=== PATIENT | female | born 1940 | race African-American/Black ===

== ENCOUNTER 2017-12-16 21:56 | Inpatient (IN) | payer MEDICARE, MEDICAID ==
[~2017-12-16] VITALS: Ht 152.4 cm; Wt 65.3 kg
[~2017-12-16 21:56] MED LIST: LIPITOR PO; RANO10003 PO
[2017-12-16] MEDS ORDERED: SODIUM CHLORIDE 0.9% 1000ML BAG (SEPSIS BOLUS) IV ONE (22:30)
[2017-12-16] MEDS ORDERED: ACETAMINOPHEN 650MG SUPP PR ONE (23:00)
[2017-12-16 23:24] LABS: BASOPHILS % 0.6 % (0.0-2.0); HEMATOCRIT. 43.6 % (36.0-48.0); HEMOGLOBIN. 14.7 g/dL (12.0-16.0); MEAN CORPUSCULAR HEMOGLOBIN 30.8 pg (28.0-32.0); MEAN CORPUSCULAR VOLUME 91.8 fL (81.0-99.0); MEAN PLATELET VOLUME 8.6 fl (7.4-10.4); MONOCYTES % 10.1 % (2.0-8.0); NEUTROPHILS % 74.3 % (40.0-76.0); PLATELET 223 x1000/uL (130-400); RED BLOOD CELL COUNT 4.75 mill/uL (4.2-5.4); RED CELL DISTRIBUTION WIDTH 15.7 % (11.6-14.6)
[2017-12-16] MEDS ORDERED: MEROPENEM 1,000 MG in SODIUM CHLORIDE 0.9% 100 ML IV ONE (23:30)
[2017-12-16] MEDS ORDERED: VANCOMYCIN 1 G PREMIX 200 ML IV ONE (23:30)
[2017-12-16] MEDS ORDERED: PIPERACILLIN/TAZ 3.375G PREMIX 50 ML IV ONE (23:30)
[2017-12-16 23:31] LABS: INR 1.3
[2017-12-16 23:36] LABS: CHLORIDE 104 mEq/L (98-107); ETHANOL BLOOD < 10 mg/dL
[2017-12-17 00:06] LABS: CLARITY URINE CLEAR (CLEAR); COLOR URINE YELLOW (YELLOW); KETONES URINE NEGATIVE (NEGATIVE); LEUKOCYTE ESTERASE URINE 1+ (NEGATIVE); NITRITE URINE NEGATIVE (NEGATIVE); OCCULT BLOOD URINE NEGATIVE (NEGATIVE); PH URINE 5.5 (4.5-8.0); PROTEIN URINE NEGATIVE (NEGATIVE); SPECIFIC GRAVITY URINE 1.018 (1.005-1.030); UROBILINOGEN URINE 0.2 E.U./dL (0.2-1.0)
[2017-12-17 00:53] LABS: *AMPHETAMINES SCREEN URINE NEGATIVE (NEGATIVE); *BARBITURATES SCREEN URINE NEGATIVE (NEGATIVE); *BENZODIAZEPINES SCREEN URINE PRESUMTIVE POSITIVE (NEGATIVE); *COCAINE SCREEN URINE NEGATIVE (NEGATIVE); CANNABINOID URINE SCREEN NEGATIVE (NEGATIVE); METHADONE URINE SCREEN NEGATIVE (NEGATIVE); OPIATES URINE SCREEN NEGATIVE (NEGATIVE); PHENCYCLIDINE URINE SCREEN NEGATIVE (NEGATIVE)
[2017-12-17] MEDS ORDERED: ONDANSETRON HCL 4MG/2ML VIAL IV PRN (01:00)
[2017-12-17] MEDS ORDERED: IPRATROPIUM/ALBUTEROL 0.5-3(2.5)MG/3ML NEB INH PRN (01:00)
[2017-12-17] MEDS ORDERED: IOHEXOL-300 100 ML BOTTLE ONE (01:07)
[2017-12-17] MEDS ORDERED: PIPERACILLIN/TAZ 3.375G PREMIX 50 ML IV SCH (06:00)
[2017-12-17 06:08] LABS: BASOPHILS % 0.6 % (0.0-2.0); CHLORIDE 108 mEq/L (98-107); EOSINOPHILS % 0.1 % (0.0-5.0); HEMATOCRIT. 39.8 % (36.0-48.0); HEMOGLOBIN. 13.2 g/dL (12.0-16.0); LYMPHOCYTES % 15.4 % (20.0-50.0); MEAN CORPUSCULAR HEMOGLOBIN 30.8 pg (28.0-32.0); MEAN CORPUSCULAR VOLUME 92.6 fL (81.0-99.0); MEAN PLATELET VOLUME 8.4 fl (7.4-10.4); MONOCYTES % 13.6 % (2.0-8.0); NEUTROPHILS % 70.3 % (40.0-76.0); PLATELET 194 x1000/uL (130-400); RED CELL DISTRIBUTION WIDTH 15.9 % (11.6-14.6)
[2017-12-17 10:04] LABS: AMMONIA 18 uMol/L (<32)
[2017-12-17] MEDS ORDERED: NA PHOS,M-B/NA PHOS,DI-BA ENEMA 118ML PR NR (10:45)
[2017-12-17] MEDS: DEXT 5%/0.45% NACL 1000ML 1,000 ML IV SCH (10:58)
[2017-12-17] MEDS: PANTOPRAZOLE SODIUM 40 MG/VIAL IV SCH (10:58)
[2017-12-17 13:35] VITALS: BP 137/102
[2017-12-17 14:00] VITALS: BP 135/89
[2017-12-17] MEDS ORDERED: HYDRALAZINE 20MG/ML VIAL IV PRN (14:15)
[2017-12-17] MEDS ORDERED: MEMA10TA2 PO (14:35)
[2017-12-17] MEDS ORDERED: AMIT10TA6 PO (14:35)
[2017-12-17] MEDS ORDERED: OMEP20CA10 PO (14:35)
[2017-12-17] MEDS ORDERED: ALPR1TAB2 PO (14:35)
[2017-12-17] MEDS ORDERED: RANO500T3 PO (14:35)
[2017-12-17] MEDS: PIPERACILLIN/TAZ 3.375G PREMIX 50 ML IV SCH ×2 (15:49→22:01)
[2017-12-17 16:00] VITALS: BP 124/69
[2017-12-17] MEDS: VANCOMYCIN 750 MG PREMIX 150 ML IV SCH (17:41)
[2017-12-17 18:00] VITALS: BP 128/53
[2017-12-17 19:14] LABS: T4 FREE 1.46 ng/dL (0.76-1.46)
[2017-12-17 20:00] VITALS: BP 119/55
[2017-12-17 22:00] VITALS: BP 122/87
[2017-12-18] VITALS (12 sets, daily range): BP systolic 108–137; BP diastolic 69–87
[2017-12-18] MEDS: DEXT 5%/0.45% NACL 1000ML 1,000 ML IV SCH ×2 (01:46→19:57)
[2017-12-18] MEDS: PIPERACILLIN/TAZ 3.375G PREMIX 50 ML IV SCH ×3 (05:45→22:08)
[2017-12-18 06:31] LABS: CHLORIDE 107 mEq/L (98-107)
[2017-12-18 06:34] LABS: BASOPHILS % 0.5 % (0.0-2.0); EOSINOPHILS % 1.4 % (0.0-5.0); HEMATOCRIT. 35.2 % (36.0-48.0); HEMOGLOBIN. 11.9 g/dL (12.0-16.0); LYMPHOCYTES % 19.6 % (20.0-50.0); MEAN CORPUSCULAR VOLUME 91.7 fL (81.0-99.0); MEAN PLATELET VOLUME 8.5 fl (7.4-10.4); MONOCYTES % 8.8 % (2.0-8.0); NEUTROPHILS % 69.7 % (40.0-76.0); PLATELET 192 x1000/uL (130-400); RED BLOOD CELL COUNT 3.84 mill/uL (4.2-5.4); RED CELL DISTRIBUTION WIDTH 15.9 % (11.6-14.6)
[2017-12-18 06:41] LABS: PHOSPHORUS 2.3 mg/dL (2.5-4.9)
[2017-12-18] MEDS: PANTOPRAZOLE SODIUM 40 MG/VIAL IV SCH (09:45)
[2017-12-18] MEDS ORDERED: LACTULOSE 20G/30ML UDC PO SCH (12:15)
[2017-12-18] MEDS: VANCOMYCIN 750 MG PREMIX 150 ML IV SCH (12:22)
[2017-12-18] MEDS: ACETAMINOPHEN 325MG TABLET PO PRN (20:08)
[2017-12-19] VITALS (12 sets, daily range): BP systolic 106–146; BP diastolic 67–97
[2017-12-19] MEDS: PIPERACILLIN/TAZ 3.375G PREMIX 50 ML IV SCH ×3 (05:28→22:21)
[2017-12-19] MEDS: VANCOMYCIN 750 MG PREMIX 150 ML IV SCH (05:28)
[2017-12-19 07:15] LABS: BASOPHILS % 0.7 % (0.0-2.0); EOSINOPHILS % 1.3 % (0.0-5.0); HEMOGLOBIN. 11.7 g/dL (12.0-16.0); LYMPHOCYTES % 17.1 % (20.0-50.0); MEAN CORPUSCULAR HEMOGLOBIN 30.7 pg (28.0-32.0); MEAN CORPUSCULAR VOLUME 91.7 fL (81.0-99.0); MEAN PLATELET VOLUME 8.6 fl (7.4-10.4); MONOCYTES % 10.8 % (2.0-8.0); NEUTROPHILS % 70.1 % (40.0-76.0); PLATELET 201 x1000/uL (130-400); RED BLOOD CELL COUNT 3.82 mill/uL (4.2-5.4); RED CELL DISTRIBUTION WIDTH 15.1 % (11.6-14.6)
[2017-12-19 07:43] LABS: CHLORIDE 105 mEq/L (98-107)
[2017-12-19] MEDS: PANTOPRAZOLE SODIUM 40 MG/VIAL IV SCH (08:46)
[2017-12-19 09:31] LABS: VITAMIN B12 SERUM 1038 pg/mL (211-911)
[2017-12-19] MEDS: ACETAMINOPHEN 325MG TABLET PO PRN (23:52)
[2017-12-20] VITALS (12 sets, daily range): BP systolic 104–135; BP diastolic 58–99
[2017-12-20] MEDS: VANCOMYCIN 750 MG PREMIX 150 ML IV SCH (00:17)
[2017-12-20] MEDS: PIPERACILLIN/TAZ 3.375G PREMIX 50 ML IV SCH ×3 (05:55→21:10)
[2017-12-20 07:10] LABS: EOSINOPHILS % 2.1 % (0.0-5.0); HEMATOCRIT. 33.7 % (36.0-48.0); HEMOGLOBIN. 11.2 g/dL (12.0-16.0); LYMPHOCYTES % 21.1 % (20.0-50.0); MEAN CORPUSCULAR HEMOGLOBIN 30.4 pg (28.0-32.0); MEAN CORPUSCULAR VOLUME 91.6 fL (81.0-99.0); MEAN PLATELET VOLUME 8.6 fl (7.4-10.4); MONOCYTES % 9.5 % (2.0-8.0); NEUTROPHILS % 66.3 % (40.0-76.0); PLATELET 228 x1000/uL (130-400); RED BLOOD CELL COUNT 3.68 mill/uL (4.2-5.4); RED CELL DISTRIBUTION WIDTH 15.2 % (11.6-14.6)
[2017-12-20 07:46] LABS: CHLORIDE 102 mEq/L (98-107)
[2017-12-20] MEDS: PANTOPRAZOLE SODIUM 40 MG/VIAL IV SCH (08:28)
[2017-12-20] MEDS: DEXT 5%/0.45% NACL 1000ML 1,000 ML IV SCH ×2 (08:29→21:22)
[2017-12-20] MEDS: CARVEDILOL 3.125 MG TABLET PO SCH ×2 (11:26→21:09)
[2017-12-20] MEDS: POTASSIUM CHLORIDE 20MEQ TABLET SR PO SCH (11:26)
[2017-12-20] MEDS: DOCUSATE SODIUM 100MG CAPSULE PO SCH (17:01)
[2017-12-20] MEDS: ACETAMINOPHEN 325MG TABLET PO PRN (17:02)
[2017-12-20] MEDS ORDERED: VANCOMYCIN 1 G PREMIX 200 ML IV SCH (18:00)
[2017-12-20] MEDS ORDERED: ATORVASTATIN CALCIUM 40MG TABLET PO SCH (21:00)
[2017-12-20] MEDS: FUROSEMIDE 20MG TABLET PO SCH (21:09)
[2017-12-20] MEDS: RANOLAZINE 500 MG TAB.SR.12H PO SCH (21:09)
[2017-12-20] MEDS: LISINOPRIL 10MG TABLET PO SCH (21:09)
[2017-12-21] VITALS (15 sets, daily range): BP systolic 93–145; BP diastolic 52–84
[2017-12-21] MEDS: PIPERACILLIN/TAZ 3.375G PREMIX 50 ML IV SCH ×2 (05:29→15:03)
[2017-12-21 06:40] LABS: BASOPHILS % 0.8 % (0.0-2.0); HEMATOCRIT. 31.4 % (36.0-48.0); HEMOGLOBIN. 10.5 g/dL (12.0-16.0); LYMPHOCYTES % 17.4 % (20.0-50.0); MEAN CORPUSCULAR HEMOGLOBIN 30.5 pg (28.0-32.0); MEAN PLATELET VOLUME 8.2 fl (7.4-10.4); MONOCYTES % 8.6 % (2.0-8.0); NEUTROPHILS % 70.2 % (40.0-76.0); PLATELET 243 x1000/uL (130-400); RED BLOOD CELL COUNT 3.45 mill/uL (4.2-5.4); RED CELL DISTRIBUTION WIDTH 15.1 % (11.6-14.6)
[2017-12-21] MEDS: RANOLAZINE 500 MG TAB.SR.12H PO SCH (08:28)
[2017-12-21] MEDS: POTASSIUM CHLORIDE 20MEQ TABLET SR PO SCH (08:28)
[2017-12-21] MEDS: DOCUSATE SODIUM 100MG CAPSULE PO SCH ×2 (08:29→16:54)
[2017-12-21] MEDS: CARVEDILOL 3.125 MG TABLET PO SCH (08:29)
[2017-12-21] MEDS: LISINOPRIL 10MG TABLET PO SCH (08:30)
[2017-12-21] MEDS: FUROSEMIDE 20MG TABLET PO SCH (08:33)
[2017-12-21] MEDS ORDERED: SPIRONOLACTONE 25MG TABLET PO SCH (09:00)
[2017-12-21 09:30] LABS: CHLORIDE 102 mEq/L (98-107)
[2017-12-21 13:07] LABS: A/G RATIO 0.7 (0.7-1.7); ALBUMIN 2.5 g/dL (2.9-4.4); ALPHA-1-GLOBULIN 0.5 g/dL (0.0-0.4); ALPHA-2-GLOBULIN 0.9 g/dL (0.4-1.0); BETA GLOBULIN 0.9 g/dL (0.7-1.3); GAMMA GLOBULINS 1.1 g/dL (0.4-1.8); GLOBULIN TOTAL 3.4 g/dL (2.2-3.9); M-SPIKE Not Observed g/dL (Not Observed); TOTAL PROTEIN SERUM 5.9 g/dL (6.0-8.5)
[2017-12-21] MEDS: PANTOPRAZOLE SODIUM 40 MG/VIAL IV SCH (15:02)
[2017-12-21] MEDS: DEXT 5%/0.45% NACL 1000ML 1,000 ML IV SCH (15:03)
[2017-12-22] MEDS ORDERED: LISINOPRIL 5MG TABLET PO SCH (09:00)
[2017-12-22] MEDS ORDERED: FAMOTIDINE 20MG TABLET PO SCH (09:00)
== END 2017-12-21 18:33 | DRG 871 ==
LOC: ER 21:57 → 5EST 12-17 00:34 → EDBEDREQTM 12-17 00:36 → EDBEDREQ 12-17 00:36 → SUPCPDRO 12-17 00:53 → ENRESERV 12-17 11:14
PROVIDERS: ADMIT Family Medicine Adult Medicine; ATTEND Family Medicine Adult Medicine
DX: A41.9 Sepsis, unspecified organism (principal); G92 Toxic encephalopathy; E27.49 Other adrenocortical insufficiency; I11.0 Hypertensive heart disease with heart failure; I50.9 Heart failure, unspecified; E44.1 Mild protein-calorie malnutrition; M48.54XA Collapsed vertebra, not elsewhere classified, thoracic region, initial encounter for fracture; F03.90 Unspecified dementia, unspecified severity, without behavioral disturbance, psychotic disturbance, mood disturbance, and anxiety; E04.2 Nontoxic multinodular goiter; K59.00 Constipation, unspecified; E78.5 Hyperlipidemia, unspecified; F13.10 Sedative, hypnotic or anxiolytic abuse, uncomplicated; I25.10 Atherosclerotic heart disease of native coronary artery without angina pectoris; I25.5 Ischemic cardiomyopathy; J44.9 Chronic obstructive pulmonary disease, unspecified; K21.9 Gastro-esophageal reflux disease without esophagitis; M81.0 Age-related osteoporosis without current pathological fracture; R62.7 Adult failure to thrive; F32.9 Major depressive disorder, single episode, unspecified; F41.9 Anxiety disorder, unspecified; M19.90 Unspecified osteoarthritis, unspecified site; Z79.899 Other long term (current) drug therapy; Z82.62 Family history of osteoporosis; Z90.710 Acquired absence of both cervix and uterus; Z68.28 Body mass index [BMI] 28.0-28.9, adult
CPT/HCPCS: 36415; 51702; 70450; 70551; 71045; 71260; 73562; 73610; 74177; 76536; 80048; 80053; 80202; 80305; 81003; 82088; 82140; 82330; 82533; 82607; 82962; 83036; 83605; 83690; 83735; 83880; 83970; 84100; 84155; 84165; 84244; 84439; 84443; 84481; 84484; 85025; 85610; 87040; 87086; 92610; 93005; 93306; 93880; 93970; 96361; 96365; 96366; 96368; 97163; 97166; 97530; 99291; C1893; C9113; G0482; J2185; J2543; J3370; J7030; J7050; Q9967; A4315

== ENCOUNTER 2019-05-12 04:28 | Inpatient (IN) | payer MEDICARE, MEDICAID ==
[~2019-05-12] VITALS: Ht 152.4 cm; Wt 61.9 kg
[~2019-05-12 04:28] MED LIST changes: +ALPR1TAB2 PO; +AMIT10TA6 PO; +MEMA10TA2 PO; +OMEP20CA5 PO; -RANO10003 PO; +RANO500T3 PO
[2019-05-12] MEDS ORDERED: METHYLPREDNISOLONE SOD SUCC 125 MG/2 ML VIAL IV STA (06:20)
[2019-05-12] MEDS ORDERED: ALBUTEROL (0.083%) 2.5MG/3ML NEB HHN STA (06:20)
[2019-05-12] MEDS ORDERED: IPRATROPIUM BROMIDE (0.02%) 0.5MG/2.5ML NEB HHN STA (06:20)
[2019-05-12 06:41] LABS: BASOPHILS % 1.6 % (0.0-2.0); EOSINOPHILS % 0.2 % (0.0-5.0); HEMATOCRIT. 34.2 % (36.0-48.0); HEMOGLOBIN. 11.3 g/dL (12.0-16.0); LYMPHOCYTES % 25.8 % (20.0-50.0); MEAN CORPUSCULAR HEMOGLOBIN 30.4 pg (28.0-32.0); MEAN CORPUSCULAR VOLUME 91.9 fL (81.0-99.0); MEAN PLATELET VOLUME 10.5 fl (7.4-10.4); MONOCYTES % 5.1 % (2.0-8.0); NEUTROPHILS % 67.3 % (40.0-76.0); PLATELET 221 x1000/uL (130-400); RED BLOOD CELL COUNT 3.73 mill/uL (4.2-5.4); RED CELL DISTRIBUTION WIDTH 18.9 % (11.6-14.6)
[2019-05-12] MEDS ORDERED: KETOROLAC 30MG/ML VIAL IV ONE (06:45)
[2019-05-12 07:18] LABS: CHLORIDE 109 mEq/L (98-107)
[2019-05-12 07:23] LABS: BG BASE EXCESS -7.5 mmol/L (-2.0-2.0); BG CARBOXYHEMOGLOBIN 0.4 % (0.5-1.5); BG DEOXYHEMOGLOBIN 1.9 % (0.0-5.0); BG FRACTION INSPIRED OXYGEN 29; BG HCO3 ACT 15.2 mmol/L (22.0-26.0); BG METHEMOGLOBIN 0.3 % (0.0-1.5); BG OXYGEN SATURATION 98.1 % (92.0-98.5); BG OXYHEMOGLOBIN 97.4 % (94.0-97.0); BG PCO2 23.6 mmHg (35.0-45.0); BG PH 7.428 (7.350-7.450); BG PO2 116.6 mmHg (75.0-100.0); BG SAMPLE SITE RIGHT FEMORAL; BG TOTAL HEMOGLOBIN 11.5 g/dL (12.0-18.0); BG VENT MODE NASAL CANNULA
[2019-05-12] MEDS ORDERED: ASPIRIN 325MG EC TABLET PO ONE (08:00)
[2019-05-12] MEDS ORDERED: FUROSEMIDE 20MG/2ML VIAL IVP ONE (09:15)
[2019-05-12] MEDS ORDERED: IPRATROPIUM/ALBUTEROL 0.5-3(2.5)MG/3ML NEB HHN PRN (10:30)
[2019-05-12] MEDS ORDERED: GUAIFENESIN 200MG/10ML SUGAR FREE UDC PO PRN (12:30)
[2019-05-12] MEDS ORDERED: ONDANSETRON HCL 4MG/2ML INJ IV PRN (12:30)
[2019-05-12] MEDS ORDERED: DIPHENHYDRAMINE 50MG/ML VIAL IV PRN (12:30)
[2019-05-12] MEDS ORDERED: MAGNESIUM/ALUMINUM HYDROXIDE/SIMETHICONE 30ML UDC PO PRN (12:30)
[2019-05-12] MEDS ORDERED: DOCUSATE SODIUM 100MG CAPSULE PO PRN (12:30)
[2019-05-12] MEDS ORDERED: CLONIDINE 0.1MG TABLET PO PRN (12:30)
[2019-05-12] MEDS ORDERED: LORAZEPAM 2MG/ML CPJ IV NR (13:00)
[2019-05-12 13:09] LABS: CLARITY URINE CLEAR (CLEAR); COLOR URINE DARK YELLOW (YELLOW); KETONES URINE TRACE (NEGATIVE); LEUKOCYTE ESTERASE URINE TRACE (NEGATIVE); NITRITE URINE NEGATIVE (NEGATIVE); OCCULT BLOOD URINE NEGATIVE (NEGATIVE); PROTEIN URINE TRACE (NEGATIVE); SPECIFIC GRAVITY URINE 1.021 (1.005-1.030); UROBILINOGEN URINE 0.2 E.U./dL (0.2-1.0)
[2019-05-12] MEDS ORDERED: ASPIRIN 81MG EC TABLET PO NR (13:45)
[2019-05-12 16:30] VITALS: BP 110/81
[2019-05-12] MEDS ORDERED: LORAZEPAM 0.5MG TABLET PO PRN (18:15)
[2019-05-12] MEDS: ENOXAPARIN 60MG/0.6ML SYR SUBCUT SCH (18:53)
[2019-05-12] MEDS: MONTELUKAST SODIUM 10MG TABLET PO SCH (19:14)
[2019-05-12] MEDS: FAMOTIDINE 20MG/2ML VIAL IV SCH (19:28)
[2019-05-12 20:00] VITALS: BP 108/81
[2019-05-12] MEDS: ATORVASTATIN CALCIUM 40MG TABLET PO SCH (20:24)
[2019-05-12] MEDS: RANOLAZINE 500 MG TAB.SR.12H PO SCH (20:24)
[2019-05-12] MEDS: GUAIFENESIN 600MG ER TABLET PO SCH (20:25)
[2019-05-12] MEDS: FLUTICASONE PROPIONATE 50MCG/SPRAY BOTTLE BOTHNSTRLS SCH (20:26)
[2019-05-12] MEDS: AMLODIPINE 5MG TABLET PO SCH (20:29)
[2019-05-13] VITALS: BP 102/77
[2019-05-13] MEDS: IPRATROPIUM/ALBUTEROL 0.5-3(2.5)MG/3ML NEB HHN SCH ×2 (01:24→10:12)
[2019-05-13] MEDS: LORAZEPAM 0.5MG TABLET PO PRN ×2 (01:28→14:40)
[2019-05-13] MEDS: HYDROCODONE/ACETAMINOPHEN 5/325MG TABLET PO PRN ×2 (02:39→22:48)
[2019-05-13 04:00] VITALS: BP 96/73
[2019-05-13 07:19] LABS: BASOPHILS % 0.2 % (0.0-2.0); HEMATOCRIT. 33.9 % (36.0-48.0); HEMOGLOBIN. 11.1 g/dL (12.0-16.0); LYMPHOCYTES % 18.9 % (20.0-50.0); MEAN CORPUSCULAR HEMOGLOBIN 30.2 pg (28.0-32.0); MONOCYTES % 5.7 % (2.0-8.0); NEUTROPHILS % 75.2 % (40.0-76.0); PLATELET 168 x1000/uL (130-400); RED BLOOD CELL COUNT 3.68 mill/uL (4.2-5.4); RED CELL DISTRIBUTION WIDTH 18.7 % (11.6-14.6)
[2019-05-13 07:41] LABS: CHLORIDE 105 mEq/L (98-107)
[2019-05-13 07:50] LABS: T4 FREE 1.59 ng/dL (0.76-1.46)
[2019-05-13 07:53] LABS: LDL CHOLESTEROL 49 mg/dL (5-100)
[2019-05-13 07:57] LABS: HDL CHOLESTEROL 45 mg/dL (40-59)
[2019-05-13 08:00] VITALS: BP 93/70
[2019-05-13] MEDS: AMLODIPINE 5MG TABLET PO SCH ×2 (09:00→21:00)
[2019-05-13] MEDS ORDERED: FUROSEMIDE 20MG/2ML VIAL IVP SCH (09:00)
[2019-05-13] MEDS: FLUTICASONE PROPIONATE 50MCG/SPRAY BOTTLE BOTHNSTRLS SCH ×2 (10:19→21:01)
[2019-05-13] MEDS: RANOLAZINE 500 MG TAB.SR.12H PO SCH ×2 (10:19→21:00)
[2019-05-13] MEDS: GUAIFENESIN 600MG ER TABLET PO SCH ×2 (10:19→21:00)
[2019-05-13] MEDS: FAMOTIDINE 20MG/2ML VIAL IV SCH (10:19)
[2019-05-13] MEDS ORDERED: GABA-531 PO (11:27)
[2019-05-13] MEDS ORDERED: BUSP10TA3 MT (11:27)
[2019-05-13] MEDS ORDERED: HYDR-3281 MT (11:27)
[2019-05-13] MEDS ORDERED: OMEP20TA2 MT (11:27)
[2019-05-13] MEDS ORDERED: SACU1TAB MT (11:27)
[2019-05-13 12:00] VITALS: BP 95/69
[2019-05-13] MEDS: MONTELUKAST SODIUM 10MG TABLET PO SCH (18:28)
[2019-05-13] MEDS: ENOXAPARIN 60MG/0.6ML SYR SUBCUT SCH (18:29)
[2019-05-13 20:00] VITALS: BP 118/81
[2019-05-13] MEDS: ATORVASTATIN CALCIUM 40MG TABLET PO SCH (21:00)
[2019-05-13 23:43] LABS: *AMPHETAMINES SCREEN URINE NEGATIVE (NEGATIVE); *BARBITURATES SCREEN URINE NEGATIVE (NEGATIVE); *BENZODIAZEPINES SCREEN URINE NEGATIVE (NEGATIVE); *COCAINE SCREEN URINE NEGATIVE (NEGATIVE)
[2019-05-13 23:44] LABS: CANNABINOID URINE SCREEN NEGATIVE (NEGATIVE); METHADONE URINE SCREEN NEGATIVE (NEGATIVE); OPIATES URINE SCREEN PRESUMTIVE POSITIVE (NEGATIVE); PHENCYCLIDINE URINE SCREEN NEGATIVE (NEGATIVE)
[2019-05-14] VITALS: BP 73/54
[2019-05-14 04:00] VITALS: BP 115/54
[2019-05-14] MEDS: LORAZEPAM 0.5MG TABLET PO PRN (05:02)
[2019-05-14] MEDS: ACETAMINOPHEN 325MG TABLET PO PRN (05:08)
[2019-05-14 07:24] LABS: BASOPHILS % 0.1 % (0.0-2.0); HEMATOCRIT. 32.3 % (36.0-48.0); HEMOGLOBIN. 10.6 g/dL (12.0-16.0); LYMPHOCYTES % 11.5 % (20.0-50.0); MEAN CORPUSCULAR HEMOGLOBIN 29.8 pg (28.0-32.0); MEAN CORPUSCULAR VOLUME 90.8 fL (81.0-99.0); MEAN PLATELET VOLUME 10.7 fl (7.4-10.4); MONOCYTES % 3.9 % (2.0-8.0); NEUTROPHILS % 84.5 % (40.0-76.0); PLATELET 148 x1000/uL (130-400); RED BLOOD CELL COUNT 3.56 mill/uL (4.2-5.4); RED CELL DISTRIBUTION WIDTH 18.4 % (11.6-14.6)
[2019-05-14 07:26] LABS: INR 2.1; PROTHROMBIN TIME 21.3 sec (9.6-11.0)
[2019-05-14 07:47] LABS: PHOSPHORUS 5.1 mg/dL (2.5-4.9)
[2019-05-14 08:00] VITALS: BP 80/54
[2019-05-14] MEDS ORDERED: HETASTARCH/NORMAL SALINE 500 ML PLAST..BAG IV ONE (09:00)
[2019-05-14] MEDS: FLUTICASONE PROPIONATE 50MCG/SPRAY BOTTLE BOTHNSTRLS SCH ×2 (09:25→20:21)
[2019-05-14] MEDS: FAMOTIDINE 20MG/2ML VIAL IV SCH (09:25)
[2019-05-14] MEDS: GUAIFENESIN 600MG ER TABLET PO SCH ×2 (09:25→20:20)
[2019-05-14] MEDS ORDERED: SODIUM POLYSTYRENE SULFONATE 15 G/60 ML BOT PO SCH (10:00)
[2019-05-14] MEDS ORDERED: HETASTARCH/NORMAL SALINE 250 ML IV SCH (10:00)
[2019-05-14 12:26] VITALS: BP 104/29
[2019-05-14] MEDS ORDERED: SODIUM CHLORIDE 0.9% 500 ML IV ONE (13:45)
[2019-05-14 16:00] VITALS: BP 120/65
[2019-05-14] MEDS: ENOXAPARIN 60MG/0.6ML SYR SUBCUT SCH (17:44)
[2019-05-14] MEDS: MONTELUKAST SODIUM 10MG TABLET PO SCH (17:44)
[2019-05-14 20:00] VITALS: BP 87/64
[2019-05-14] MEDS: ATORVASTATIN CALCIUM 40MG TABLET PO SCH (20:21)
[2019-05-15] VITALS: BP 93/66
[2019-05-15] MEDS: LORAZEPAM 0.5MG TABLET PO PRN (01:27)
[2019-05-15 04:00] VITALS: BP 90/67
[2019-05-15 06:25] LABS: INR 1.8
[2019-05-15 06:47] LABS: BASOPHILS % 0.2 % (0.0-2.0); EOSINOPHILS % 0.3 % (0.0-5.0); HEMATOCRIT. 32.5 % (36.0-48.0); HEMOGLOBIN. 11.1 g/dL (12.0-16.0); LYMPHOCYTES % 17.2 % (20.0-50.0); MEAN CORPUSCULAR VOLUME 90.8 fL (81.0-99.0); MEAN PLATELET VOLUME 10.9 fl (7.4-10.4); MONOCYTES % 4.4 % (2.0-8.0); NEUTROPHILS % 77.9 % (40.0-76.0); PLATELET 160 x1000/uL (130-400); RED BLOOD CELL COUNT 3.58 mill/uL (4.2-5.4); RED CELL DISTRIBUTION WIDTH 18.7 % (11.6-14.6)
[2019-05-15 08:00] VITALS: BP 94/63
[2019-05-15] MEDS: FAMOTIDINE 20MG/2ML VIAL IV SCH (10:21)
[2019-05-15] MEDS: GUAIFENESIN 600MG ER TABLET PO SCH ×2 (10:21→20:41)
[2019-05-15] MEDS: FLUTICASONE PROPIONATE 50MCG/SPRAY BOTTLE BOTHNSTRLS SCH ×2 (10:23→20:42)
[2019-05-15] MEDS: ACETAMINOPHEN 325MG TABLET PO PRN (11:48)
[2019-05-15 12:00] VITALS: BP 83/56
[2019-05-15 16:00] VITALS: BP 85/55
[2019-05-15 17:30] LABS: HEPATITIS B SURFACE ANTIGEN NEGATIVE
[2019-05-15 17:59] LABS: HEPATITIS A AB IGM NEGATIVE (NEGATIVE)
[2019-05-15] MEDS: MONTELUKAST SODIUM 10MG TABLET PO SCH (18:05)
[2019-05-15 20:00] VITALS: BP 83/54
[2019-05-15] MEDS: ATORVASTATIN CALCIUM 40MG TABLET PO SCH (20:42)
[2019-05-16] VITALS: BP 89/53
[2019-05-16 04:00] VITALS: BP 90/61
[2019-05-16 06:03] LABS: INR 1.5
[2019-05-16 06:25] LABS: BASOPHILS % 0.4 % (0.0-2.0); EOSINOPHILS % 2.7 % (0.0-5.0); HEMATOCRIT. 32.9 % (36.0-48.0); HEMOGLOBIN. 10.9 g/dL (12.0-16.0); LYMPHOCYTES % 23.2 % (20.0-50.0); MEAN CORPUSCULAR HEMOGLOBIN 30.1 pg (28.0-32.0); MEAN CORPUSCULAR VOLUME 90.6 fL (81.0-99.0); MEAN PLATELET VOLUME 9.8 fl (7.4-10.4); MONOCYTES % 6.9 % (2.0-8.0); NEUTROPHILS % 66.8 % (40.0-76.0); PLATELET 162 x1000/uL (130-400); RED BLOOD CELL COUNT 3.63 mill/uL (4.2-5.4); RED CELL DISTRIBUTION WIDTH 18.1 % (11.6-14.6)
[2019-05-16 07:35] LABS: BG BASE EXCESS -4.2 mmol/L (-2.0-2.0); BG CARBOXYHEMOGLOBIN 0.3 % (0.5-1.5); BG DEOXYHEMOGLOBIN 4.1 % (0.0-5.0); BG HCO3 ACT 19.1 mmol/L (22.0-26.0); BG METHEMOGLOBIN 0.3 % (0.0-1.5); BG OXYGEN SATURATION 95.9 % (92.0-98.5); BG OXYHEMOGLOBIN 95.3 % (94.0-97.0); BG PCO2 29.7 mmHg (35.0-45.0); BG PH 7.427 (7.350-7.450); BG SAMPLE SITE RIGHT BRACHIAL; BG TOTAL HEMOGLOBIN 11.3 g/dL (12.0-18.0); BG VENT MODE ROOM AIR
[2019-05-16 08:00] VITALS: BP 92/64
[2019-05-16] MEDS: FAMOTIDINE 20MG/2ML VIAL IV SCH (08:32)
[2019-05-16] MEDS: GUAIFENESIN 600MG ER TABLET PO SCH (08:32)
[2019-05-16] MEDS: MIDODRINE HCL 5MG TABLET PO SCH ×2 (08:32→13:39)
[2019-05-16] MEDS ORDERED: CALCIUM GLUCONATE 1,000 MG in DEXT 5% WATER 90 ML IV SCH (09:00)
[2019-05-16 12:19] VITALS: BP 99/60
[2019-05-16 12:42] VITALS: BP 99/60
== END 2019-05-16 14:05 | disposition home health service (06) | DRG 280 ==
LOC: ER 04:28 → 5WST 09:07 → EDBEDREQSVC 09:22 → EDBEDREQ 09:22 → EDBEDREQTM 09:22 → EDBEDREQSVC 10:06 → ENRESERV 15:21
PROVIDERS: ADMIT Family Medicine Adult Medicine; ATTEND Family Medicine Adult Medicine
DX: I21.4 Non-ST elevation (NSTEMI) myocardial infarction (principal); J96.00 Acute respiratory failure, unspecified whether with hypoxia or hypercapnia; I50.43 Acute on chronic combined systolic (congestive) and diastolic (congestive) heart failure; N17.0 Acute kidney failure with tubular necrosis; N39.0 Urinary tract infection, site not specified; E87.4 Mixed disorder of acid-base balance; K21.9 Gastro-esophageal reflux disease without esophagitis; J98.01 Acute bronchospasm; J44.9 Chronic obstructive pulmonary disease, unspecified; I25.5 Ischemic cardiomyopathy; I25.10 Atherosclerotic heart disease of native coronary artery without angina pectoris; I11.0 Hypertensive heart disease with heart failure; F41.9 Anxiety disorder, unspecified; E27.9 Disorder of adrenal gland, unspecified; J00 Acute nasopharyngitis [common cold]; F32.9 Major depressive disorder, single episode, unspecified; G89.29 Other chronic pain; J30.9 Allergic rhinitis, unspecified; I95.9 Hypotension, unspecified; E78.5 Hyperlipidemia, unspecified; D64.9 Anemia, unspecified; I27.20 Pulmonary hypertension, unspecified; I50.82 Biventricular heart failure; M17.11 Unilateral primary osteoarthritis, right knee; M48.061 Spinal stenosis, lumbar region without neurogenic claudication; T50.2X5A Adverse effect of carbonic-anhydrase inhibitors, benzothiadiazides and other diuretics, initial encounter; Y92.89 Other specified places as the place of occurrence of the external cause; Z82.49 Family history of ischemic heart disease and other diseases of the circulatory system; Z86.711 Personal history of pulmonary embolism; Z90.710 Acquired absence of both cervix and uterus; Z88.5 Allergy status to narcotic agent; Z79.899 Other long term (current) drug therapy
CPT/HCPCS: 36415; 36600; 71045; 72148; 73560; 76770; 78582; 80048; 80061; 80305; 81003; 82375; 82805; 83036; 83605; 83735; 83880; 84100; 84132; 84145; 84439; 84443; 84481; 84484; 85379; 86705; 86709; 86803; 87340; 93005; 93306; 93970; 94640; 94644; 97110; 97162; 97166; 99285; A9558; J0610; J1200; J1650; J1885; J1940; J2060; J2930; J3490; J7060; J7611; J7620

== ENCOUNTER 2019-06-29 14:42 | Inpatient (IN) | payer MEDICARE, MEDICAID ==
[~2019-06-29] VITALS: Ht 149.9 cm; Wt 61.4 kg
[~2019-06-29 14:42] MED LIST changes: +BUSP10TA3 MT; +GABA-531 PO; +HYDR-3281 MT; +OMEP20TA2 MT; +SACU1TAB MT
[2019-06-29] MEDS ORDERED: SODIUM CHLORIDE 0.9% 1,000 ML IV ONE ×2 (17:00→17:30)
[2019-06-29 20:33] LABS: BASOPHILS % 1.4 % (0.0-2.0); EOSINOPHILS % 1.6 % (0.0-5.0); HEMATOCRIT. 32.9 % (36.0-48.0); HEMOGLOBIN. 10.3 g/dL (12.0-16.0); MEAN CORPUSCULAR HEMOGLOBIN 29.5 pg (28.0-32.0); MEAN CORPUSCULAR VOLUME 94.3 fL (81.0-99.0); MEAN PLATELET VOLUME 10.6 fl (7.4-10.4); MONOCYTES % 8.7 % (2.0-8.0); NEUTROPHILS % 55.3 % (40.0-76.0); PLATELET 143 x1000/uL (130-400); RED BLOOD CELL COUNT 3.49 mill/uL (4.2-5.4); RED CELL DISTRIBUTION WIDTH 19.5 % (11.6-14.6)
[2019-06-29 20:35] LABS: CHLORIDE 110 mEq/L (98-107)
[2019-06-29] MEDS ORDERED: HYDROCODONE/ACETAMINOPHEN 5/325MG TABLET PO ONE (21:30)
[2019-06-29 21:50] LABS: CLARITY URINE CLOUDY (CLEAR); COLOR URINE YELLOW (YELLOW); KETONES URINE NEGATIVE (NEGATIVE); LEUKOCYTE ESTERASE URINE 2+ (NEGATIVE); NITRITE URINE NEGATIVE (NEGATIVE); OCCULT BLOOD URINE 3+ (NEGATIVE); PH URINE 5.5 (4.5-8.0); PROTEIN URINE 1+ (NEGATIVE); SPECIFIC GRAVITY URINE 1.015 (1.005-1.030)
[2019-06-29] MEDS ORDERED: CEFTRIAXONE 1 G PREMIX 50 ML IV ONE (22:15)
[2019-06-29] MEDS ORDERED: CEFTRIAXONE 1,000 MG in DEXTROSE 5% WATER 50 ML IV SCH (22:45)
[2019-06-30] VITALS (7 sets, daily range): BP systolic 104–151; BP diastolic 66–81
[2019-06-30] MEDS ORDERED: coreg PO (01:49)
[2019-06-30] MEDS ORDERED: TRAZODONE HCL 50MG TABLET PO PRN (03:45)
[2019-06-30] MEDS: OMEPRAZOLE 20MG CAPSULE EXTENDED RELEASE PO SCH ×2 (07:00→21:27)
[2019-06-30] MEDS ORDERED: BUSPIRONE HCL 10MG TABLET PO PRN (11:45)
[2019-06-30] MEDS ORDERED: INFLUENZA VIRUS VACCINE(AFLURIA) 0.5ML SYR IM ONE (12:00)
[2019-06-30 12:26] LABS: BASOPHILS % 1.2 % (0.0-2.0); EOSINOPHILS % 0.4 % (0.0-5.0); HEMATOCRIT. 32.6 % (36.0-48.0); HEMOGLOBIN. 10.4 g/dL (12.0-16.0); LYMPHOCYTES % 26.7 % (20.0-50.0); MEAN CORPUSCULAR HEMOGLOBIN 29.5 pg (28.0-32.0); MEAN PLATELET VOLUME 9.9 fl (7.4-10.4); MONOCYTES % 7.8 % (2.0-8.0); NEUTROPHILS % 63.9 % (40.0-76.0); PLATELET 152 x1000/uL (130-400); RED BLOOD CELL COUNT 3.54 mill/uL (4.2-5.4); RED CELL DISTRIBUTION WIDTH 19.4 % (11.6-14.6)
[2019-06-30 12:44] LABS: CHLORIDE 113 mEq/L (98-107)
[2019-06-30] MEDS: ACETAMINOPHEN 325MG TABLET PO PRN (15:23)
[2019-06-30] MEDS ORDERED: HYDROCODONE/ACETAMINOPHEN 5/325MG TABLET PO PRN (17:00)
[2019-06-30] MEDS: HYDROCODONE/ACETAMINOPHEN 5/325MG TABLET PO PRN (17:17)
[2019-06-30] MEDS ORDERED: ATORVASTATIN CALCIUM 40MG TABLET PO SCH (21:00)
[2019-06-30] MEDS ORDERED: TRAZODONE HCL 50MG TABLET PO SCH (21:00)
[2019-06-30] MEDS: GABAPENTIN 300MG CAPSULE PO SCH (21:00)
[2019-06-30] MEDS: RANOLAZINE 500 MG TAB.SR.12H PO SCH (21:27)
[2019-06-30] MEDS: MEMANTINE HCL 10MG TABLET PO SCH (21:28)
[2019-06-30] MEDS: CARVEDILOL 3.125 MG TABLET PO SCH (21:30)
[2019-06-30] MEDS: CEFTRIAXONE 1,000 MG in DEXTROSE 5% WATER 50 ML IV SCH (22:53)
[2019-07-01] VITALS: BP 97/69
[2019-07-01 04:00] VITALS: BP 104/68
[2019-07-01] MEDS: OMEPRAZOLE 20MG CAPSULE EXTENDED RELEASE PO SCH (06:46)
[2019-07-01 08:00] VITALS: BP 104/69
[2019-07-01] MEDS: CARVEDILOL 3.125 MG TABLET PO SCH ×2 (09:00→21:00)
[2019-07-01 09:19] LABS: BASOPHILS % 1.2 % (0.0-2.0); HEMOGLOBIN. 10.1 g/dL (12.0-16.0); LYMPHOCYTES % 18.2 % (20.0-50.0); MEAN CORPUSCULAR HEMOGLOBIN 29.2 pg (28.0-32.0); MEAN CORPUSCULAR VOLUME 92.1 fL (81.0-99.0); MONOCYTES % 7.6 % (2.0-8.0); PLATELET 152 x1000/uL (130-400); RED BLOOD CELL COUNT 3.48 mill/uL (4.2-5.4)
[2019-07-01] MEDS: RANOLAZINE 500 MG TAB.SR.12H PO SCH ×2 (09:41→21:48)
[2019-07-01] MEDS: MEMANTINE HCL 10MG TABLET PO SCH ×2 (09:41→21:48)
[2019-07-01 12:00] VITALS: BP 96/69
[2019-07-01] MEDS: SPIRONOLACTONE 25MG TABLET PO SCH (13:30)
[2019-07-01] MEDS: LISINOPRIL 2.5MG TABLET PO SCH (13:30)
[2019-07-01] MEDS: ASPIRIN 81MG EC TABLET PO SCH (15:22)
[2019-07-01 16:00] VITALS: BP 97/63
[2019-07-01] MEDS: ACETAMINOPHEN 325MG TABLET PO PRN (16:56)
[2019-07-01] MEDS: HYDROCODONE/ACETAMINOPHEN 5/325MG TABLET PO PRN (18:38)
[2019-07-01 20:00] VITALS: BP 102/72
[2019-07-01] MEDS: ALPRAZOLAM 0.5 MG TABLET PO PRN (21:48)
[2019-07-01] MEDS: GABAPENTIN 300MG CAPSULE PO SCH (21:48)
[2019-07-01] MEDS: ATORVASTATIN CALCIUM 40MG TABLET PO SCH (21:49)
[2019-07-01] MEDS: CEFTRIAXONE 1,000 MG in DEXTROSE 5% WATER 50 ML IV SCH (23:01)
[2019-07-02] VITALS: BP 97/66
[2019-07-02 04:00] VITALS: BP 100/74
[2019-07-02 07:57] LABS: BASOPHILS % 0.8 % (0.0-2.0); EOSINOPHILS % 2.5 % (0.0-5.0); HEMATOCRIT. 31.8 % (36.0-48.0); HEMOGLOBIN. 10.2 g/dL (12.0-16.0); LYMPHOCYTES % 13.1 % (20.0-50.0); MEAN CORPUSCULAR HEMOGLOBIN 29.8 pg (28.0-32.0); MEAN PLATELET VOLUME 9.8 fl (7.4-10.4); MONOCYTES % 6.6 % (2.0-8.0); PLATELET 153 x1000/uL (130-400); RED BLOOD CELL COUNT 3.43 mill/uL (4.2-5.4); RED CELL DISTRIBUTION WIDTH 19.8 % (11.6-14.6)
[2019-07-02 08:42] VITALS: BP 101/65
[2019-07-02] MEDS: SPIRONOLACTONE 25MG TABLET PO SCH (08:48)
[2019-07-02] MEDS: RANOLAZINE 500 MG TAB.SR.12H PO SCH ×2 (08:48→21:39)
[2019-07-02] MEDS: MEMANTINE HCL 10MG TABLET PO SCH ×2 (08:48→21:51)
[2019-07-02] MEDS: ASPIRIN 81MG EC TABLET PO SCH (08:48)
[2019-07-02] MEDS: FAMOTIDINE 20MG TABLET PO SCH (08:48)
[2019-07-02] MEDS: LISINOPRIL 2.5MG TABLET PO SCH (08:49)
[2019-07-02] MEDS: CARVEDILOL 3.125 MG TABLET PO SCH ×2 (08:49→21:39)
[2019-07-02 12:00] VITALS: BP 115/77
[2019-07-02] MEDS: HYDROCODONE/ACETAMINOPHEN 5/325MG TABLET PO PRN (17:43)
[2019-07-02 20:00] VITALS: BP 101/65
[2019-07-02] MEDS: ALPRAZOLAM 0.5 MG TABLET PO PRN (21:38)
[2019-07-02] MEDS: GABAPENTIN 300MG CAPSULE PO SCH (21:38)
[2019-07-02] MEDS: ATORVASTATIN CALCIUM 40MG TABLET PO SCH (21:38)
[2019-07-02] MEDS: CEFTRIAXONE 1,000 MG in DEXTROSE 5% WATER 50 ML IV SCH (23:00)
[2019-07-03] VITALS: BP 118/67
[2019-07-03 04:00] VITALS: BP 120/67
[2019-07-03 08:00] VITALS: BP 105/70
[2019-07-03] MEDS: RANOLAZINE 500 MG TAB.SR.12H PO SCH (09:34)
[2019-07-03] MEDS: LISINOPRIL 2.5MG TABLET PO SCH (09:34)
[2019-07-03] MEDS: MEMANTINE HCL 10MG TABLET PO SCH (09:34)
[2019-07-03] MEDS: CARVEDILOL 3.125 MG TABLET PO SCH (09:35)
[2019-07-03] MEDS: ASPIRIN 81MG EC TABLET PO SCH (09:35)
[2019-07-03] MEDS: FAMOTIDINE 20MG TABLET PO SCH (09:35)
[2019-07-03] MEDS: SPIRONOLACTONE 25MG TABLET PO SCH (09:49)
[2019-07-03 12:00] VITALS: BP 92/60
[2019-07-03 15:54] VITALS: BP 134/70
[2019-07-03 16:00] VITALS: BP 122/72
== END 2019-07-03 17:45 | disposition home or self-care (01) | DRG 690 ==
LOC: ER 14:53 → 6WST 22:07 → ENRESERV 22:59 → 6WST 06-30 02:12
PROVIDERS: ADMIT Family Medicine Adult Medicine; ATTEND Family Medicine Adult Medicine
DX: N12 Tubulo-interstitial nephritis, not specified as acute or chronic (principal); I13.0 Hypertensive heart and chronic kidney disease with heart failure and stage 1 through stage 4 chronic kidney disease, or unspecified chronic kidney disease; E87.2 Acidosis; I38 Endocarditis, valve unspecified; N39.0 Urinary tract infection, site not specified; N17.9 Acute kidney failure, unspecified; D64.9 Anemia, unspecified; K21.9 Gastro-esophageal reflux disease without esophagitis; I25.10 Atherosclerotic heart disease of native coronary artery without angina pectoris; I50.9 Heart failure, unspecified; F41.9 Anxiety disorder, unspecified; I25.5 Ischemic cardiomyopathy; B96.20 Unspecified Escherichia coli [E. coli] as the cause of diseases classified elsewhere; N18.9 Chronic kidney disease, unspecified; E80.6 Other disorders of bilirubin metabolism; E78.5 Hyperlipidemia, unspecified; F32.9 Major depressive disorder, single episode, unspecified; M19.90 Unspecified osteoarthritis, unspecified site; I27.20 Pulmonary hypertension, unspecified; J44.9 Chronic obstructive pulmonary disease, unspecified; Z82.49 Family history of ischemic heart disease and other diseases of the circulatory system; Z95.810 Presence of automatic (implantable) cardiac defibrillator; Z90.710 Acquired absence of both cervix and uterus; Z88.0 Allergy status to penicillin; Z88.8 Allergy status to other drugs, medicaments and biological substances; I25.2 Old myocardial infarction; Z88.5 Allergy status to narcotic agent
CPT/HCPCS: 36415; 71045; 74176; 76705; 80048; 81003; 83605; 83735; 83880; 84484; 86850; 86900; 87077; 87186; 90686; 93005; 93306; 93970; 97162; 99285; J0696; J7030; J7040; J7060

== ENCOUNTER 2019-07-08 11:46 | Inpatient (IN) | payer MEDICARE, MEDICAID ==
[2019-07-08] VITALS (32 sets, daily range): BP systolic 78–127; BP diastolic 43–69
[~2019-07-08] VITALS: Ht 149.9 cm; Wt 69.9 kg
[~2019-07-08 11:46] MED LIST changes: -ALPR1TAB2 PO; -AMIT10TA6 PO; -GABA-531 PO; -LIPITOR PO; -MEMA10TA2 PO; -RANO500T3 PO; -SACU1TAB MT; +coreg PO
[2019-07-08] MEDS ORDERED: PIPERACILLIN/TAZ 3.375G PREMIX 50 ML IV ONE (12:30)
[2019-07-08] MEDS ORDERED: VANCOMYCIN 1 G PREMIX 200 ML IV ONE (12:30)
[2019-07-08] MEDS ORDERED: SODIUM CHLORIDE 0.9% 1000ML BAG (SEPSIS BOLUS) IV ONE (12:30)
[2019-07-08 12:50] LABS: HEMOGLOBIN. 9.6 g/dL (12.0-16.0); MEAN CORPUSCULAR HEMOGLOBIN 28.6 pg (28.0-32.0); MEAN CORPUSCULAR VOLUME 89.6 fL (81.0-99.0); MEAN PLATELET VOLUME 8.8 fl (7.4-10.4); PLATELET 182 x1000/uL (130-400); RED BLOOD CELL COUNT 3.35 mill/uL (4.2-5.4); RED CELL DISTRIBUTION WIDTH 19.1 % (11.6-14.6)
[2019-07-08 12:56] LABS: PARTIAL THROMBOPLASTIN TIME 36.2 sec (23.4-31.0); PROTHROMBIN TIME 20.5 sec (9.6-11.0)
[2019-07-08 12:59] LABS: CHLORIDE 105 mEq/L (98-107)
[2019-07-08] MEDS ORDERED: PIPERACILLIN/TAZOBACTAM 3.375 G in DEXT 5% WATER 100 ML IV SCH (13:00)
[2019-07-08 13:16] LABS: NUCLEATED RED BLOOD CELLS 1 /100 WBC; PLATELET ESTIMATE NORMAL
[2019-07-08] MEDS ORDERED: LIDOCAINE HCL 1% 20ML VIAL (Pyxis) INJ ONE (13:32)
[2019-07-08] MEDS ORDERED: NOREPINEPHRINE 4 MG in DEXT 5% WATER 246 ML IV PRN ×2 (14:30→21:30)
[2019-07-08] MEDS ORDERED: NOREPINEPHRINE 4 MG in DEXT 5% WATER 246 ML IV ONE (15:00)
[2019-07-08] MEDS ORDERED: NOREPINEPHRINE 4MG/250ML PMX 250 ML IV ONE (15:00)
[2019-07-08 16:00] LABS: CLARITY URINE CLEAR (CLEAR); COLOR URINE DARK YELLOW (YELLOW); KETONES URINE NEGATIVE (NEGATIVE); LEUKOCYTE ESTERASE URINE TRACE (NEGATIVE); NITRITE URINE NEGATIVE (NEGATIVE); OCCULT BLOOD URINE NEGATIVE (NEGATIVE); PROTEIN URINE NEGATIVE (NEGATIVE); SPECIFIC GRAVITY URINE 1.017 (1.005-1.030)
[2019-07-08] MEDS ORDERED: ONDANSETRON HCL 4MG/2ML INJ IV PRN (17:45)
[2019-07-08] MEDS ORDERED: IPRATROPIUM/ALBUTEROL 0.5-3(2.5)MG/3ML NEB NEB PRN (17:45)
[2019-07-08] MEDS ORDERED: CLONIDINE 0.1MG TABLET PO PRN (17:45)
[2019-07-08] MEDS ORDERED: DOCUSATE SODIUM 100MG CAPSULE PO PRN (17:45)
[2019-07-08] MEDS ORDERED: MAGNESIUM/ALUMINUM HYDROXIDE/SIMETHICONE 30ML UDC PO PRN (17:45)
[2019-07-08] MEDS: PANTOPRAZOLE SODIUM 40 MG/VIAL IV SCH (18:40)
[2019-07-08] MEDS: PIPERACILLIN/TAZOBACTAM 2.25 G in DEXTROSE 5% WATER 50 ML IV SCH (19:46)
[2019-07-08] MEDS: HYDROCODONE/ACETAMINOPHEN 5/325MG TABLET PO PRN (19:46)
[2019-07-08] MEDS ORDERED: NOREPINEPHRINE 16 MG in DEXT 5% WATER 484 ML IV PRN (22:30)
[2019-07-09] VITALS (101 sets, daily range): BP systolic 61–135; BP diastolic 35–95
[2019-07-09] MEDS: DIPHENHYDRAMINE 50MG/ML VIAL IV PRN (00:57)
[2019-07-09] MEDS: PIPERACILLIN/TAZOBACTAM 2.25 G in DEXTROSE 5% WATER 50 ML IV SCH ×3 (01:53→13:18)
[2019-07-09 05:12] LABS: HEMATOCRIT. 35.5 % (36.0-48.0); HEMOGLOBIN. 11.2 g/dL (12.0-16.0); MEAN CORPUSCULAR HEMOGLOBIN 28.5 pg (28.0-32.0); MEAN CORPUSCULAR VOLUME 90.8 fL (81.0-99.0); MEAN PLATELET VOLUME 9.5 fl (7.4-10.4); PLATELET 211 x1000/uL (130-400); RED BLOOD CELL COUNT 3.91 mill/uL (4.2-5.4); RED CELL DISTRIBUTION WIDTH 19.8 % (11.6-14.6)
[2019-07-09 05:27] LABS: PHOSPHORUS 4.4 mg/dL (2.5-4.9)
[2019-07-09 05:51] LABS: INR 2.1; PROTHROMBIN TIME 20.4 sec (9.6-11.0)
[2019-07-09] MEDS: PANTOPRAZOLE SODIUM 40 MG/VIAL IV SCH (08:14)
[2019-07-09 08:45] LABS: NUCLEATED RED BLOOD CELLS 1 /100 WBC
[2019-07-09 08:46] LABS: PLATELET ESTIMATE NORMAL
[2019-07-09] MEDS: HYDROCODONE/ACETAMINOPHEN 5/325MG TABLET PO PRN ×2 (09:18→19:53)
[2019-07-09] MEDS ORDERED: NOREPINEPHRINE 16 MG in DEXT 5% WATER 484 ML IV PRN (09:48)
[2019-07-09] MEDS ORDERED: VANCOMYCIN 750 MG PREMIX 150 ML IV SCH (10:00)
[2019-07-09] MEDS ORDERED: VANCOMYCIN 1 G PREMIX 200 ML IV SCH (10:00)
[2019-07-09] MEDS ORDERED: MAGNESIUM 1 G PREMIX 100 ML IV SCH (10:00)
[2019-07-09] MEDS ORDERED: SODIUM CHLORIDE 0.9% 1,000 ML IV SCH (10:30)
[2019-07-09 11:09] LABS: BG BASE EXCESS -8.9 mmol/L (-2.0-2.0); BG CARBOXYHEMOGLOBIN 0.7 % (0.5-1.5); BG DEOXYHEMOGLOBIN 4.4 % (0.0-5.0); BG FRACTION INSPIRED OXYGEN 21; BG HCO3 ACT 14.6 mmol/L (22.0-26.0); BG METHEMOGLOBIN 0.3 % (0.0-1.5); BG OXYGEN SATURATION 95.6 % (92.0-98.5); BG OXYHEMOGLOBIN 94.6 % (94.0-97.0); BG PCO2 25.2 mmHg (35.0-45.0); BG PH 7.381 (7.350-7.450); BG SAMPLE SITE RIGHT BRACHIAL; BG TOTAL HEMOGLOBIN 11.5 g/dL (12.0-18.0); BG VENT MODE ROOM AIR
[2019-07-09] MEDS: CITRIC ACID/SODIUM CITRATE SOLN 30ML UDC PO SCH ×2 (13:18→18:02)
[2019-07-09] MEDS ORDERED: DIATR MEGLU/DIATRIZOATE SOLN 30ML PO SCH (13:45)
[2019-07-09] MEDS: VANCOMYCIN HCL 1000 MG/20 ML ORAL PO SCH ×2 (14:00→18:08)
[2019-07-09] MEDS: METRONIDAZOLE 500 MG PREMIX 100 ML IV SCH ×2 (15:16→21:55)
[2019-07-09] MEDS: CEFEPIME 1,000 MG in DEXTROSE 5% WATER 50 ML IV SCH (16:13)
[2019-07-09] MEDS: NOREPINEPHRINE 16 MG in DEXTROSE 5% WATER 250 ML IV PRN (17:10)
[2019-07-10] VITALS (98 sets, daily range): BP systolic 62–147; BP diastolic 23–88
[2019-07-10] MEDS: VANCOMYCIN HCL 1000 MG/20 ML ORAL PO SCH ×4 (00:23→18:33)
[2019-07-10] MEDS: ACETAMINOPHEN 325MG TABLET PO PRN ×2 (01:16→13:38)
[2019-07-10 05:03] LABS: HEMATOCRIT. 35.1 % (36.0-48.0); HEMOGLOBIN. 11.3 g/dL (12.0-16.0); MEAN CORPUSCULAR HEMOGLOBIN 28.5 pg (28.0-32.0); MEAN CORPUSCULAR VOLUME 88.7 fL (81.0-99.0); MEAN PLATELET VOLUME 9.6 fl (7.4-10.4); PLATELET 201 x1000/uL (130-400); RED BLOOD CELL COUNT 3.95 mill/uL (4.2-5.4); RED CELL DISTRIBUTION WIDTH 19.5 % (11.6-14.6)
[2019-07-10] MEDS: NOREPINEPHRINE 16 MG in DEXTROSE 5% WATER 250 ML IV PRN (06:44)
[2019-07-10] MEDS: METRONIDAZOLE 500 MG PREMIX 100 ML IV SCH ×3 (06:46→22:53)
[2019-07-10 08:55] LABS: PLATELET ESTIMATE NORMAL
[2019-07-10] MEDS: DIPHENHYDRAMINE 50MG/ML VIAL IV PRN ×2 (09:17→16:18)
[2019-07-10] MEDS: PANTOPRAZOLE SODIUM 40 MG/VIAL IV SCH (09:17)
[2019-07-10] MEDS: CITRIC ACID/SODIUM CITRATE SOLN 30ML UDC PO SCH ×3 (09:17→18:33)
[2019-07-10] MEDS: ZINC SULFATE 220 MG ( 50 ) CAPSULE PO SCH (11:41)
[2019-07-10] MEDS: MULTIVITAMINS,THER W-MINERALS TABLET PO SCH (11:41)
[2019-07-10] MEDS: SODIUM BICARBONATE 50 MEQ in SODIUM CHLORIDE 0.45% 1,000 ML IV SCH (11:42)
[2019-07-10] MEDS: HYDROCODONE/ACETAMINOPHEN 5/325MG TABLET PO PRN (13:44)
[2019-07-10] MEDS: CEFEPIME 1,000 MG in DEXTROSE 5% WATER 50 ML IV SCH (15:56)
[2019-07-11] VITALS (97 sets, daily range): BP systolic 84–146; BP diastolic 17–83
[2019-07-11] MEDS: ZOLPIDEM TARTRATE 5MG TABLET PO PRN (00:15)
[2019-07-11] MEDS: VANCOMYCIN HCL 1000 MG/20 ML ORAL PO SCH ×5 (00:16→23:57)
[2019-07-11 05:46] LABS: HEMATOCRIT. 33.8 % (36.0-48.0); MEAN CORPUSCULAR HEMOGLOBIN 28.3 pg (28.0-32.0); MEAN CORPUSCULAR VOLUME 86.8 fL (81.0-99.0); MEAN PLATELET VOLUME 9.3 fl (7.4-10.4); PLATELET 181 x1000/uL (130-400); RED BLOOD CELL COUNT 3.89 mill/uL (4.2-5.4); RED CELL DISTRIBUTION WIDTH 19.5 % (11.6-14.6)
[2019-07-11 05:52] LABS: CHLORIDE 108 mEq/L (98-107)
[2019-07-11 06:06] LABS: PHOSPHORUS 3.2 mg/dL (2.5-4.9)
[2019-07-11] MEDS: METRONIDAZOLE 500 MG PREMIX 100 ML IV SCH ×3 (06:29→22:05)
[2019-07-11] MEDS: NOREPINEPHRINE 16 MG in DEXTROSE 5% WATER 250 ML IV PRN (06:35)
[2019-07-11 08:13] LABS: PLATELET ESTIMATE NORMAL
[2019-07-11] MEDS: MULTIVITAMINS,THER W-MINERALS TABLET PO SCH (08:37)
[2019-07-11] MEDS: CITRIC ACID/SODIUM CITRATE SOLN 30ML UDC PO SCH ×3 (08:37→17:41)
[2019-07-11] MEDS: PANTOPRAZOLE SODIUM 40 MG/VIAL IV SCH (08:37)
[2019-07-11] MEDS: ZINC SULFATE 220 MG ( 50 ) CAPSULE PO SCH (08:37)
[2019-07-11] MEDS: DIPHENHYDRAMINE 50MG/ML VIAL IV PRN (08:38)
[2019-07-11] MEDS: SODIUM BICARBONATE 50 MEQ in SODIUM CHLORIDE 0.45% 1,000 ML IV SCH (12:07)
[2019-07-11] MEDS: CEFEPIME 1,000 MG in DEXTROSE 5% WATER 50 ML IV SCH (15:55)
[2019-07-11] MEDS: HYDROCODONE/ACETAMINOPHEN 5/325MG TABLET PO PRN ×2 (17:41→23:58)
[2019-07-12] VITALS (99 sets, daily range): BP systolic 74–131; BP diastolic 37–102
[2019-07-12] MEDS: METRONIDAZOLE 500 MG PREMIX 100 ML IV SCH ×3 (05:59→21:40)
[2019-07-12] MEDS: VANCOMYCIN HCL 1000 MG/20 ML ORAL PO SCH ×4 (06:00→20:06)
[2019-07-12 06:26] LABS: HEMATOCRIT. 30.9 % (36.0-48.0); HEMOGLOBIN. 10.1 g/dL (12.0-16.0); MEAN CORPUSCULAR HEMOGLOBIN 28.3 pg (28.0-32.0); MEAN CORPUSCULAR VOLUME 86.5 fL (81.0-99.0); MEAN PLATELET VOLUME 9.3 fl (7.4-10.4); PLATELET 144 x1000/uL (130-400); RED BLOOD CELL COUNT 3.57 mill/uL (4.2-5.4); RED CELL DISTRIBUTION WIDTH 19.2 % (11.6-14.6)
[2019-07-12 06:40] LABS: PHOSPHORUS 1.9 mg/dL (2.5-4.9)
[2019-07-12] MEDS ORDERED: DEXT 5%/0.45% NACL 1000ML 1,000 ML IV SCH (09:00)
[2019-07-12] MEDS: ZINC SULFATE 220 MG ( 50 ) CAPSULE PO SCH (09:15)
[2019-07-12] MEDS: MULTIVITAMINS,THER W-MINERALS TABLET PO SCH (09:15)
[2019-07-12] MEDS: PANTOPRAZOLE SODIUM 40 MG/VIAL IV SCH (09:15)
[2019-07-12 09:58] LABS: PLATELET ESTIMATE NORMAL
[2019-07-12] MEDS ORDERED: POTASSIUM PHOS,M-BASIC-D-BASIC 15 MMOL in DEXT 5% WATER 245 ML IV NR (10:00)
[2019-07-12] MEDS: CARVEDILOL 3.125 MG TABLET PO SCH ×3 (13:36→22:18)
[2019-07-12] MEDS: HYDROCODONE/ACETAMINOPHEN 5/325MG TABLET PO PRN ×2 (14:08→18:13)
[2019-07-12] MEDS ORDERED: IPRATROPIUM/ALBUTEROL 0.5-3(2.5)MG/3ML NEB HHN PRN (14:45)
[2019-07-12] MEDS: CEFEPIME 1,000 MG in DEXTROSE 5% WATER 50 ML IV SCH (16:28)
[2019-07-12] MEDS: DIPHENHYDRAMINE 50MG/ML VIAL IV PRN (16:32)
[2019-07-12] MEDS ORDERED: CARVEDILOL 3.125 MG TABLET PO SCH (21:00)
[2019-07-13] VITALS (52 sets, daily range): BP systolic 74–165; BP diastolic 21–121
[2019-07-13] MEDS: ZOLPIDEM TARTRATE 5MG TABLET PO PRN ×2 (00:07→22:59)
[2019-07-13] MEDS: VANCOMYCIN HCL 1000 MG/20 ML ORAL PO SCH ×4 (00:07→23:00)
[2019-07-13 05:27] LABS: HEMATOCRIT. 32.7 % (36.0-48.0); HEMOGLOBIN. 10.8 g/dL (12.0-16.0); MEAN CORPUSCULAR HEMOGLOBIN 28.8 pg (28.0-32.0); MEAN PLATELET VOLUME 9.1 fl (7.4-10.4); PLATELET 138 x1000/uL (130-400); RED BLOOD CELL COUNT 3.76 mill/uL (4.2-5.4); RED CELL DISTRIBUTION WIDTH 19.1 % (11.6-14.6)
[2019-07-13 05:34] LABS: CHLORIDE 107 mEq/L (98-107)
[2019-07-13] MEDS: METRONIDAZOLE 500 MG PREMIX 100 ML IV SCH (05:52)
[2019-07-13 08:11] LABS: PLATELET ESTIMATE NORMAL
[2019-07-13] MEDS: PANTOPRAZOLE SODIUM 40 MG/VIAL IV SCH (09:08)
[2019-07-13] MEDS: CARVEDILOL 3.125 MG TABLET PO SCH ×5 (09:09→22:14)
[2019-07-13] MEDS: ZINC SULFATE 220 MG ( 50 ) CAPSULE PO SCH (09:09)
[2019-07-13] MEDS: MULTIVITAMINS,THER W-MINERALS TABLET PO SCH (09:09)
[2019-07-13] MEDS: HYDROCODONE/ACETAMINOPHEN 5/325MG TABLET PO PRN ×3 (09:20→18:58)
[2019-07-13] MEDS ORDERED: SODIUM PHOS,M-BASIC-D-BASIC 20 MM in DEXT 5% WATER 243.3333 ML IV NR (10:00)
[2019-07-13] MEDS ORDERED: CEFEPIME 1,000 MG in DEXTROSE 5% WATER 50 ML IV SCH (13:00)
[2019-07-14] VITALS (21 sets, daily range): BP systolic 91–112; BP diastolic 54–77
[2019-07-14 05:21] LABS: HEMATOCRIT. 36.4 % (36.0-48.0); HEMOGLOBIN. 11.9 g/dL (12.0-16.0); MEAN CORPUSCULAR HEMOGLOBIN 28.7 pg (28.0-32.0); MEAN CORPUSCULAR VOLUME 87.3 fL (81.0-99.0); MEAN PLATELET VOLUME 9.1 fl (7.4-10.4); PLATELET 155 x1000/uL (130-400); RED BLOOD CELL COUNT 4.17 mill/uL (4.2-5.4); RED CELL DISTRIBUTION WIDTH 19.2 % (11.6-14.6)
[2019-07-14 05:38] LABS: CHLORIDE 105 mEq/L (98-107)
[2019-07-14] MEDS: VANCOMYCIN HCL 1000 MG/20 ML ORAL PO SCH ×3 (05:45→18:09)
[2019-07-14] MEDS: CARVEDILOL 3.125 MG TABLET PO SCH ×2 (05:45→21:58)
[2019-07-14 05:47] LABS: PHOSPHORUS 3.3 mg/dL (2.5-4.9)
[2019-07-14 09:12] LABS: BG CARBOXYHEMOGLOBIN 0.3 % (0.5-1.5); BG DEOXYHEMOGLOBIN 2.4 % (0.0-5.0); BG FRACTION INSPIRED OXYGEN 26; BG METHEMOGLOBIN 0.6 % (0.0-1.5); BG OXYGEN SATURATION 97.6 % (92.0-98.5); BG OXYHEMOGLOBIN 96.7 % (94.0-97.0); BG PCO2 29.7 mmHg (35.0-45.0); BG PH 7.447 (7.350-7.450); BG PO2 107.1 mmHg (75.0-100.0); BG SAMPLE SITE RIGHT RADIAL; BG TOTAL HEMOGLOBIN 12.3 g/dL (12.0-18.0); BG VENT MODE NASAL CANNULA
[2019-07-14] MEDS: ZINC SULFATE 220 MG ( 50 ) CAPSULE PO SCH (09:16)
[2019-07-14] MEDS: MULTIVITAMINS,THER W-MINERALS TABLET PO SCH (09:16)
[2019-07-14] MEDS: PANTOPRAZOLE SODIUM 40 MG/VIAL IV SCH (09:16)
[2019-07-14 10:51] LABS: PLATELET ESTIMATE NORMAL
[2019-07-14] MEDS: HYDROCODONE/ACETAMINOPHEN 5/325MG TABLET PO PRN ×2 (14:15→21:58)
[2019-07-15] VITALS (12 sets, daily range): BP systolic 85–96; BP diastolic 59–70
[2019-07-15] MEDS: VANCOMYCIN HCL 1000 MG/20 ML ORAL PO SCH ×4 (00:37→17:45)
[2019-07-15] MEDS: ZOLPIDEM TARTRATE 5MG TABLET PO PRN (00:37)
[2019-07-15] MEDS: HYDROCODONE/ACETAMINOPHEN 5/325MG TABLET PO PRN ×2 (06:11→17:07)
[2019-07-15 07:22] LABS: BASOPHILS % 0.7 % (0.0-2.0); EOSINOPHILS % 3.1 % (0.0-5.0); HEMATOCRIT. 32.1 % (36.0-48.0); HEMOGLOBIN. 10.4 g/dL (12.0-16.0); LYMPHOCYTES % 15.9 % (20.0-50.0); MEAN CORPUSCULAR HEMOGLOBIN 28.2 pg (28.0-32.0); MEAN CORPUSCULAR VOLUME 86.7 fL (81.0-99.0); MEAN PLATELET VOLUME 8.7 fl (7.4-10.4); NEUTROPHILS % 74.3 % (40.0-76.0); PLATELET 148 x1000/uL (130-400); RED CELL DISTRIBUTION WIDTH 19.3 % (11.6-14.6)
[2019-07-15 07:49] LABS: CHLORIDE 107 mEq/L (98-107)
[2019-07-15] MEDS: CARVEDILOL 3.125 MG TABLET PO SCH ×2 (09:00→20:59)
[2019-07-15] MEDS: MULTIVITAMINS,THER W-MINERALS TABLET PO SCH (09:22)
[2019-07-15] MEDS: ZINC SULFATE 220 MG ( 50 ) CAPSULE PO SCH (09:22)
[2019-07-15] MEDS: PANTOPRAZOLE SODIUM 40 MG/VIAL IV SCH (09:22)
[2019-07-15] MEDS: ASPIRIN 81MG EC TABLET PO SCH (12:26)
[2019-07-15] MEDS: DIPHENHYDRAMINE 50MG/ML VIAL IV PRN (21:10)
[2019-07-15] MEDS: ATORVASTATIN CALCIUM 40MG TABLET PO SCH (21:10)
[2019-07-16] VITALS (12 sets, daily range): BP systolic 90–128; BP diastolic 47–75
[2019-07-16] MEDS: VANCOMYCIN HCL 1000 MG/20 ML ORAL PO SCH ×4 (00:24→17:42)
[2019-07-16] MEDS: ACETAMINOPHEN 325MG TABLET PO PRN (05:37)
[2019-07-16 07:43] LABS: CHLORIDE 109 mEq/L (98-107)
[2019-07-16] MEDS: ASPIRIN 81MG EC TABLET PO SCH (08:59)
[2019-07-16] MEDS: ZINC SULFATE 220 MG ( 50 ) CAPSULE PO SCH (08:59)
[2019-07-16] MEDS: MULTIVITAMINS,THER W-MINERALS TABLET PO SCH (08:59)
[2019-07-16] MEDS: CARVEDILOL 3.125 MG TABLET PO SCH ×2 (09:00→20:39)
[2019-07-16 10:20] LABS: HEMATOCRIT. 32.3 % (36.0-48.0); HEMOGLOBIN. 10.5 g/dL (12.0-16.0); MEAN CORPUSCULAR HEMOGLOBIN 28.1 pg (28.0-32.0); MEAN CORPUSCULAR VOLUME 86.1 fL (81.0-99.0); MEAN PLATELET VOLUME 8.6 fl (7.4-10.4); PLATELET 146 x1000/uL (130-400); RED BLOOD CELL COUNT 3.75 mill/uL (4.2-5.4); RED CELL DISTRIBUTION WIDTH 19.4 % (11.6-14.6)
[2019-07-16] MEDS ORDERED: SODIUM CHLORIDE 0.9% 1,000 ML IV ONE (10:45)
[2019-07-16 11:05] LABS: NUCLEATED RED BLOOD CELLS 1 /100 WBC
[2019-07-16 11:06] LABS: PLATELET ESTIMATE NORMAL
[2019-07-16 16:00] LABS: CLARITY URINE CLOUDY (CLEAR); COLOR URINE DARK YELLOW (YELLOW); KETONES URINE 1+ (NEGATIVE); LEUKOCYTE ESTERASE URINE 1+ (NEGATIVE); NITRITE URINE POSITIVE (NEGATIVE); OCCULT BLOOD URINE NEGATIVE (NEGATIVE); PH URINE 5.5 (4.5-8.0); PROTEIN URINE 1+ (NEGATIVE); SPECIFIC GRAVITY URINE 1.024 (1.005-1.030); UROBILINOGEN URINE 0.2 E.U./dL (0.2-1.0)
[2019-07-16 17:22] LABS: INR 1.8; PROTHROMBIN TIME 17.7 sec (9.6-11.0)
[2019-07-16] MEDS: ENOXAPARIN 80MG/0.8ML SYR SUBCUT SCH (18:56)
[2019-07-16] MEDS: ATORVASTATIN CALCIUM 40MG TABLET PO SCH (20:39)
[2019-07-17] VITALS (11 sets, daily range): BP systolic 97–134; BP diastolic 57–84
[2019-07-17] MEDS: VANCOMYCIN HCL 1000 MG/20 ML ORAL PO SCH ×4 (00:17→18:13)
[2019-07-17] MEDS: ENOXAPARIN 80MG/0.8ML SYR SUBCUT SCH ×2 (06:36→18:12)
[2019-07-17 06:52] LABS: INR 1.8; PROTHROMBIN TIME 17.7 sec (9.6-11.0)
[2019-07-17 07:06] LABS: EOSINOPHILS % 0.7 % (0.0-5.0); HEMATOCRIT. 31.1 % (36.0-48.0); HEMOGLOBIN. 10.4 g/dL (12.0-16.0); LYMPHOCYTES % 14.4 % (20.0-50.0); MEAN CORPUSCULAR HEMOGLOBIN 28.8 pg (28.0-32.0); MEAN CORPUSCULAR VOLUME 85.8 fL (81.0-99.0); MEAN PLATELET VOLUME 8.7 fl (7.4-10.4); MONOCYTES % 4.7 % (2.0-8.0); NEUTROPHILS % 79.2 % (40.0-76.0); PLATELET 190 x1000/uL (130-400); RED BLOOD CELL COUNT 3.63 mill/uL (4.2-5.4); RED CELL DISTRIBUTION WIDTH 19.6 % (11.6-14.6)
[2019-07-17 08:11] LABS: CHLORIDE 108 mEq/L (98-107)
[2019-07-17] MEDS: MULTIVITAMINS,THER W-MINERALS TABLET PO SCH (08:30)
[2019-07-17] MEDS: ZINC SULFATE 220 MG ( 50 ) CAPSULE PO SCH (08:30)
[2019-07-17] MEDS: ASPIRIN 81MG EC TABLET PO SCH (08:30)
[2019-07-17] MEDS: CARVEDILOL 3.125 MG TABLET PO SCH ×2 (08:31→20:02)
[2019-07-17] MEDS: ATORVASTATIN CALCIUM 40MG TABLET PO SCH (20:01)
== END 2019-07-18 00:05 | DRG 871 ==
LOC: ER 11:46 → MICUSO 14:53 → ENRESERV 15:42 → 5EST 07-14 17:38
PROVIDERS: ADMIT Family Medicine Adult Medicine; ATTEND Family Medicine Adult Medicine
PROC: 02HV33Z Insertion of Infusion Device into Superior Vena Cava, Percutaneous Approach (ICD-10-PCS; principal; 2019-07-08)
PROC: B548ZZA Ultrasonography of Superior Vena Cava, Guidance (ICD-10-PCS; 2019-07-08)
DX: A41.4 Sepsis due to anaerobes (principal); J18.1 Lobar pneumonia, unspecified organism; N17.0 Acute kidney failure with tubular necrosis; R65.21 Severe sepsis with septic shock; J96.00 Acute respiratory failure, unspecified whether with hypoxia or hypercapnia; E87.2 Acidosis; E44.1 Mild protein-calorie malnutrition; D68.9 Coagulation defect, unspecified; A04.72 Enterocolitis due to Clostridium difficile, not specified as recurrent; G62.81 Critical illness polyneuropathy; I13.0 Hypertensive heart and chronic kidney disease with heart failure and stage 1 through stage 4 chronic kidney disease, or unspecified chronic kidney disease; I50.22 Chronic systolic (congestive) heart failure; I82.622 Acute embolism and thrombosis of deep veins of left upper extremity; I82.B12 Acute embolism and thrombosis of left subclavian vein; I82.C12 Acute embolism and thrombosis of left internal jugular vein; J44.0 Chronic obstructive pulmonary disease with (acute) lower respiratory infection; T79.A3XA Traumatic compartment syndrome of abdomen, initial encounter; I25.5 Ischemic cardiomyopathy; F32.9 Major depressive disorder, single episode, unspecified; E86.9 Volume depletion, unspecified; D64.9 Anemia, unspecified; N18.9 Chronic kidney disease, unspecified; K21.9 Gastro-esophageal reflux disease without esophagitis; E78.5 Hyperlipidemia, unspecified; E83.39 Other disorders of phosphorus metabolism; F41.9 Anxiety disorder, unspecified; G89.4 Chronic pain syndrome; I25.10 Atherosclerotic heart disease of native coronary artery without angina pectoris; I27.29 Other secondary pulmonary hypertension; M19.90 Unspecified osteoarthritis, unspecified site; I34.0 Nonrheumatic mitral (valve) insufficiency; R26.9 Unspecified abnormalities of gait and mobility; M48.061 Spinal stenosis, lumbar region without neurogenic claudication; M54.16 Radiculopathy, lumbar region; R13.10 Dysphagia, unspecified; X58.XXXA Exposure to other specified factors, initial encounter; Z79.01 Long term (current) use of anticoagulants; Z82.49 Family history of ischemic heart disease and other diseases of the circulatory system; I25.2 Old myocardial infarction; Z87.440 Personal history of urinary (tract) infections; Z90.710 Acquired absence of both cervix and uterus; Z95.810 Presence of automatic (implantable) cardiac defibrillator; Z88.6 Allergy status to analgesic agent; Z79.899 Other long term (current) drug therapy; Z68.31 Body mass index [BMI] 31.0-31.9, adult
CPT/HCPCS: 36415; 36600; 71045; 71275; 74176; 76937; 80048; 80076; 80202; 81003; 82375; 82805; 83605; 83735; 83880; 84100; 84134; 84145; 84425; 84443; 84484; 87106; 87493; 89055; 92610; 93005; 93306; 93970; 93971; 97162; 97167; 97530; 99291; A6261; C1725; C9113; J0692; J1200; J1650; J2543; J3370; J3475; J3490; J7030; J7040; J7060; J7620; Q9963; A4315